=== PATIENT | male | born 1970 | race Caucasian/White ===

== ENCOUNTER 2020-02-28 18:22 | Emergency (ER) | payer OTHER ==
[~2020-02-28] VITALS: Ht 190.5 cm; Wt 103.1 kg
[2020-02-28 19:12] LABS: BASOPHILS % (AUTO) 1 % (0-1); EOSINOPHILS % (AUTO) 3 % (1-7); LYMPHOCYTES % (AUTO) 31 % (22-44); MEAN CORPUSCULAR HEMOGLOBIN 31.6 pg (27.5-34.5); MEAN CORPUSCULAR HGB CONC 34.8 g/dL (33.2-36.2); MEAN PLATELET VOLUME 8.1 fL (7.4-10.4); MONOCYTES % (AUTO) 8 % (2-9); NEUTROPHILS % (AUTO) 58 % (42-75); PLATELET COUNT 219 x10^3/uL (130-400); RED BLOOD COUNT 5.06 x10^6/uL (4.38-5.82); RED CELL DISTRIBUTION WIDTH 13.2 % (9.4-14.8)
[2020-02-28 19:13] LABS: MD NO
[2020-02-28 19:22] LABS: ANION GAP 2 mmol/L (5-15); CALCIUM 8.6 mg/dL (8.5-10.1); CHLORIDE 108 mmol/L (98-107); CREATININE 1.23 mg/dL (0.7-1.3)
--- NOTE | 2020-02-28 19:42 | NUR ---
PT TO ROOM FROM LOBBY
[2020-02-28 19:54] VITALS: BP 146/96
--- NOTE | 2020-02-28 19:56 | NUR ---
FIRST CONTACT. CC OF SHARP LEFT ABD PAIN 8/10 X 1 MONTH THAT HAS WORSENED OVER THE LAST 3-4 DAYS AND DOES NOT RESOLVE AT REST. PT DENIES TRAUMA TO AREA. PT SITTING UP IN GURNEY, RESP EVEN AND UNLABORED. GIVEN URINAL TO COLLECT UA.
[2020-02-28 20:24] LABS: MICROSCOPIC NOT IND
== END 2020-02-28 22:32 | disposition home or self-care (01) ==
LOC: ED 21:00
DX: S39.012A Strain of muscle, fascia and tendon of lower back, initial encounter (principal); R07.81 Pleurodynia; X58.XXXA Exposure to other specified factors, initial encounter; Y93.89 Activity, other specified; Y92.410 Unspecified street and highway as the place of occurrence of the external cause; Y99.8 Other external cause status
CPT/HCPCS: 36415; 76770; 80048; 81003; 85025; 85379; 99284